=== PATIENT | male | born 2000 | race Caucasian/White ===

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

== ENCOUNTER 2022-12-11 13:10 | Emergency (ER) | payer MEDICAID ==
[~2022-12-11] VITALS: Ht 167.6 cm; Wt 59.0 kg
[2022-12-11 13:10] VITALS: BP_SYST 154; PULSE 110; RESP 18; TEMP 97.2; O2SAT 98
[2022-12-11] MEDS ORDERED: ACETAMINOPHEN 500 MG TABLET PO ONE (14:15)
[2022-12-11] MEDS ORDERED: CYCLOBENZAPRINE HCL 10 MG TABLET (FLEXERIL) PO ONE (14:45)
[2022-12-11] MEDS ORDERED: LIDOCAINE PATCH 5% 1 EA TP ONE (14:45)
[2022-12-11] MEDS ORDERED: IBUP-1970 PO (15:38)
[2022-12-11] MEDS ORDERED: ACET-2634 PO (15:38)
[2022-12-11] MEDS ORDERED: CYCL10TA24 PO (15:38)
[2022-12-11] MEDS ORDERED: LIDO1ADH22 TP (15:38)
== END 2022-12-11 15:53 | disposition home or self-care (01) ==
LOC: SED 13:10
DX: S16.1XXA Strain of muscle, fascia and tendon at neck level, initial encounter (principal); S20.212A Contusion of left front wall of thorax, initial encounter; S43.402A Unspecified sprain of left shoulder joint, initial encounter; J45.909 Unspecified asthma, uncomplicated; Z79.899 Other long term (current) drug therapy; V89.2XXA Person injured in unspecified motor-vehicle accident, traffic, initial encounter; Y93.89 Activity, other specified; Y92.89 Other specified places as the place of occurrence of the external cause; Y99.8 Other external cause status
CPT/HCPCS: 99284; 70450; 71046; 71100; 72125; 76376; J7030

== ENCOUNTER 2023-09-08 07:34 | Day surgery (SDC) | payer MEDICAID ==
[~2023-09-08] VITALS: Ht 167.6 cm; Wt 59.0 kg
[~2023-09-08 07:34] MED LIST changes: +ACET-2634 PO; +CYCL10TA24 PO; +IBUP-1970 PO; +LIDO1ADH22 TP
[2023-09-08] MEDS ORDERED: SIMETHICONE 40 MG/0.6 ML ML ONE (07:48)
[2023-09-08] MEDS ORDERED: MEPERIDINE 100 MG INJ. 100 MG/ML VIAL ONE (07:49)
[2023-09-08] MEDS ORDERED: MIDAZOLAM HCL 5 MG/5 ML VIAL ONE (07:49)
[2023-09-08 08:39] VITALS: O2SAT 99
[2023-09-08 14:17] VITALS: BP_SYST 144; PULSE 114; RESP 11
== END 2023-09-08 11:12 | disposition home or self-care (01) ==
LOC: SDS 07:34 → SMU 07:36 → SDS 11:12
PROVIDERS: ATTEND Internal Medicine Gastroenterology
DX: K52.9 Noninfective gastroenteritis and colitis, unspecified (principal); K29.50 Unspecified chronic gastritis without bleeding; B96.81 Helicobacter pylori [H. pylori] as the cause of diseases classified elsewhere; R10.9 Unspecified abdominal pain; K44.9 Diaphragmatic hernia without obstruction or gangrene; Z79.899 Other long term (current) drug therapy; Z83.79 Family history of other diseases of the digestive system
CPT/HCPCS: 43239; 87081; 36415; 88305; 88312; 88313; 99152; G0378; J2250; J2175